=== PATIENT | female | born 1965 | race Caucasian/White ===

== ENCOUNTER 2018-04-24 06:18 | Observation (INO) | payer OTHER ==
[~2018-04-24] VITALS: Ht 165.1 cm; Wt 73.5 kg
[2018-04-24] MEDS ORDERED: ROCURONIUM 50 MG/5 ML VIAL. ONE ×2 (06:28→09:24)
[2018-04-24] MEDS ORDERED: LIDOCAINE 2% PF 5 ML VIAL. ONE ×2 (06:28)
[2018-04-24] MEDS ORDERED: DEXAMETHASONE SOD PHOS 20 MG/5 ML VIAL. ONE (06:28)
[2018-04-24] MEDS ORDERED: ONDANSETRON PF 4 MG/2 ML VIAL. ONE ×2 (06:28)
[2018-04-24] MEDS ORDERED: OMEP20CA10 PO (06:32)
[2018-04-24] MEDS ORDERED: CETI-203 PO (06:33)
[2018-04-24] MEDS ORDERED: METHYLENE BLUE 1% 10 ML VIAL. ONE ×2 (06:57→06:58)
[2018-04-24] MEDS ORDERED: ESTROGENS, CONJ VAGINAL CREAM 30GM TUBE. ONE (06:57)
[2018-04-24] MEDS ORDERED: BUPIVAC MPF-EPI 0.5%-1:200000 30 ML VIAL. ONE (06:57)
[2018-04-24] MEDS ORDERED: HYDROmorphone 2 MG/ML VIAL IV PRN ×2 (07:00→10:00)
[2018-04-24] MEDS ORDERED: fentaNYL PF VIAL 100 MCG/2 ML VIAL IV PRN (07:00)
[2018-04-24] MEDS ORDERED: ONDANSETRON PF 4 MG/2 ML VIAL. IV PRN ×2 (07:00→10:00)
[2018-04-24] MEDS ORDERED: PROCHLORPERAZINE 10 MG/2 ML VIAL. IV PRN (07:00)
[2018-04-24] MEDS ORDERED: MORPHINE SULFATE 4 MG/ML VIAL. IV PRN (07:00)
[2018-04-24] MEDS ORDERED: IV RINGERS,LACTATED 1000ML 1,000 ML IV SCH (07:00)
[2018-04-24] MEDS ORDERED: LIDOCAINE 1% PF 2 ML VIAL. ID PRN (07:00)
[2018-04-24 07:15] LABS: BASO # 0.1 x10^3/uL (0.0-0.2); BASO % 1 % (0-3); EOS # 0.3 x10^3/uL (0.0-0.7); EOS % 4 % (0-3); HEMATOCRIT 44.3 % (36.0-47.0); HEMOGLOBIN 14.6 g/dL (12.0-15.5); LYMPH # 1.6 x10^3/uL (1.0-4.8); LYMPH % 22 % (24-48); MEAN CORPUSCULAR HEMOGLOBIN 32 pg (25-35); MEAN CORPUSCULAR HGB CONC 33 g/dL (31-37); MEAN CORPUSCULAR VOLUME 98 fL (79-100); MONO # 0.6 x10^3/uL (0.0-1.1); MONO % 8 % (0-9); NEUT % 66 % (31-73); PLATELET COUNT 396 x10^3/uL (140-400); RED BLOOD COUNT 4.54 x10^6/uL (3.50-5.40); RED CELL DISTRIBUTION WIDTH 13.9 % (11.5-14.5); WHITE BLOOD COUNT 7.6 x10^3/uL (4.0-11.0)
[2018-04-24] MEDS ORDERED: MIDAZOLAM HCL/PF 2 MG/2 ML VIAL. ONE (07:22)
[2018-04-24] MEDS ORDERED: fentaNYL PF VIAL 100 MCG/2 ML VIAL ONE ×2 (07:22→08:49)
[2018-04-24] MEDS ORDERED: PHENYLEPHRINE 10 MG/ML VIAL. ONE (07:25)
--- NOTE | 2018-04-24 07:44 | PDOC1 ---
History and Physical Date of Admission Date of Admission DATE: 04/24/18 TIME: 07:40 Identification/Chief Complaint Chief Complaint AUB CPP Source Source: Patient Past Medical History Cardiovascular: No pertinent hx Pulmonary: No pertinent hx GI: No pertinent hx Hepatobiliary: No pertinent hx Psych: No pertinent hx ENT: No pertinent hx Past Surgical History Past Surgical History: Tubal Ligation Social History Drugs: None Current Medications Current Medications Current Medications Ondansetron HCl (Zofran) 4 mg PRN Q6HRS PRN IV NAUSEA/VOMITING; Start 04/24/18 at 07:00; Stop 04/25/18 at 06:59 Fentanyl Citrate (Fentanyl 2ml Vial) 25 mcg PRN Q5MIN PRN IV MILD PAIN; Start 04/24/18 at 07:00; Stop 04/25/18 at 06:59 Fentanyl Citrate (Fentanyl 2ml Vial) 50 mcg PRN Q5MIN PRN IV MODERATE TO SEVERE PAIN; Start 04/24/18 at 07:00; Stop 04/25/18 at 06:59 Morphine Sulfate (Morphine Sulfate) 1 mg PRN Q10MIN PRN IV SEVERE PAIN; Start 04/24/18 at 07:00; Stop 04/25/18 at 06:59 Ringer's Solution 1,000 ml @ 30 mls/hr Q24H IV Last administered on 04/24/18at 06:47; Start 04/24/18 at 07:00; Stop 04/24/18 at 18:59 Lidocaine HCl (Xylocaine-Mpf 1% 2ml Vial) 2 ml PRN 1X PRN ID IV START; Start at 07:00; Stop 04/25/18 at 06:59 Hydromorphone HCl (Dilaudid) 0.5 mg PRN Q10MIN PRN IV SEV PAIN, Second choice; Start 04/24/18 at 07:00; Stop 04/25/18 at 06:59 Prochlorperazine Edisylate (Compazine) 5 mg PACU PRN PRN IV NAUSEA, MRX1; Start 04/24/18 at 07:00; Stop 04/25/18 at 06:59 Cefazolin Sodium/ Dextrose 50 ml @ 100 mls/hr 1X ONCE IV ; Start 04/24/18 at 06:00; Stop 04/24/18 at 06:29; Status DC Dexamethasone Sodium Phosphate (Decadron) 20 mg STK-MED ONCE .ROUTE ; Start at 06:28; Stop 04/24/18 at 06:30; Status DC Ondansetron HCl (Zofran) 4 mg STK-MED ONCE .ROUTE ; Start 04/24/18 at 06:28; Stop 04/24/18 at 06:31; Status DC Ondansetron HCl (Zofran) 4 mg STK-MED ONCE .ROUTE ; Start 04/24/18 at 06:28; Stop 04/24/18 at 06:32; Status DC Lidocaine HCl (Lidocaine Pf 2% Vial) 5 ml STK-MED ONCE .ROUTE ; Start 04/24/18 at 06:28; Stop 04/24/18 at 06:32; Status DC Lidocaine HCl (Lidocaine Pf 2% Vial) 5 ml STK-MED ONCE .ROUTE ; Start 04/24/18 at 06:28; Stop 04/24/18 at 06:32; Status DC Rocuronium [place] (Zemuron) 50 mg STK-MED ONCE .ROUTE ; Start 04/24/18 at 06:28 ; Stop 04/24/18 at 06:33; Status DC Bupivacaine HCl/ Epinephrine Bitart (Sensorcain-Mpf Epi 0.5%-1:200141) 30 ml STK -MED ONCE .ROUTE ; Start 04/24/18 at 06:57; Stop 04/24/18 at 06:58; Status DC Methylene Blue (Methylene Blue) 1 ml STK-MED ONCE .ROUTE ; Start 04/24/18 at 06: 57; Stop 04/24/18 at 06:58; Status DC Estrogens Conjugated (Premarin) 30 cong STK-MED ONCE .ROUTE ; Start 04/24/18 at 06:57; Stop 04/24/18 at 06:58; Status DC Methylene Blue (Methylene Blue) 1 ml STK-MED ONCE .ROUTE ; Start 04/24/18 at 06: 58; Stop 04/24/18 at 06:59; Status DC Fentanyl Citrate (Fentanyl 2ml Vial) 100 mcg STK-MED ONCE .ROUTE ; Start at 07:22; Stop 04/24/18 at 07:23; Status DC Midazolam HCl (Versed) 2 mg STK-MED ONCE .ROUTE ; Start 04/24/18 at 07:22; Stop 04/24/18 at 07:23; Status DC Phenylephrine HCl (Kaden-Synephrine Inj) 10 mg STK-MED ONCE .ROUTE ; Start at 07:25; Stop 04/24/18 at 07:26; Status DC Active Scripts Active Reported Cetirizine Hcl 1 Mg/1 Ml Solution 2.5 Ml PO DAILY Omeprazole 20 Mg Capsule. 1 Cap PO DAILY Allergies Allergies: Coded Allergies: No Known Drug Allergies (Unverified , 04/24/18) ROS Gastrointestinal: Yes Other (SONIDO AUB CPP) Genitourinary: YES Other (AUB SONIDO) Physical Exam General: Alert, Oriented X3, Cooperative, No acute distress HEENT: PERRLA Lungs: Clear to auscultation, Normal air movement Breasts: Normal, Rt breast nml w/o mass, Lt breast nml w/o mass, Nipples normal Abdomen: Normal bowel sounds, Soft, No tenderness, No hepatosplenomegaly, No masses Male Genitals Exam: normal genitalia, normal prostate PELVIC: Nml ext genitalia, Nml ext vulva, Nml ext vagina, Nml ext cervic Extremities: No clubbing, No cyanosis, No edema, Normal pulses, No tenderness/ swelling Skin: No rashes, No breakdown, No significant lesion Neuro: Normal gait, Normal speech, Strength at 5/5 X4 ext, Normal tone, Sensation intact, Cranial nerves 3-12 NL, Reflexes 2+ Psych/Mental Status: Mental status NL, Mood NL Vitals Vitals Vital Signs Date Time Temp Pulse Resp B/P (MAP) Pulse Ox O2 Delivery O2 Flow Rate FiO2 04/24/18 06:34 97.3 83 16 144/71 97 Room Air 97.3 Labs Labs Laboratory Tests Test 04/24/18 06:20 White Blood Count 7.6 x10^3/uL (4.0-11.0) Red Blood Count 4.54 x10^6/uL (3.50-5.40) Hemoglobin 14.6 g/dL (12.0-15.5) Hematocrit 44.3 % (36.0-47.0) Mean Corpuscular Volume 98 fL (79-100) Mean Corpuscular Hemoglobin 32 pg (25-35) Mean Corpuscular Hemoglobin Concent 33 g/dL (31-37) Red Cell Distribution Width 13.9 % (11.5-14.5) Platelet Count 396 x10^3/uL (140-400) Neutrophils (%) (Auto) 66 % (31-73) Lymphocytes (%) (Auto) 22 % (24-48) Monocytes (%) (Auto) 8 % (0-9) Eosinophils (%) (Auto) 4 % (0-3) Basophils (%) (Auto) 1 % (0-3) Neutrophils # (Auto) 5.0 x10^3uL (1.8-7.7) Lymphocytes # (Auto) 1.6 x10^3/uL (1.0-4.8) Monocytes # (Auto) 0.6 x10^3/uL (0.0-1.1) Eosinophils # (Auto) 0.3 x10^3/uL (0.0-0.7) Basophils # (Auto) 0.1 x10^3/uL (0.0-0.2) Laboratory Tests Test 04/24/18 06:20 White Blood Count 7.6 x10^3/uL (4.0-11.0) Red Blood Count 4.54 x10^6/uL (3.50-5.40) Hemoglobin 14.6 g/dL (12.0-15.5) Hematocrit 44.3 % (36.0-47.0) Mean Corpuscular Volume 98 fL (79-100) Mean Corpuscular Hemoglobin 32 pg (25-35) Mean Corpuscular Hemoglobin Concent 33 g/dL (31-37) Red Cell Distribution Width 13.9 % (11.5-14.5) Platelet Count 396 x10^3/uL (140-400) Neutrophils (%) (Auto) 66 % (31-73) Lymphocytes (%) (Auto) 22 % (24-48) Monocytes (%) (Auto) 8 % (0-9) Eosinophils (%) (Auto) 4 % (0-3) Basophils (%) (Auto) 1 % (0-3) Neutrophils # (Auto) 5.0 x10^3uL (1.8-7.7) Lymphocytes # (Auto) 1.6 x10^3/uL (1.0-4.8) Monocytes # (Auto) 0.6 x10^3/uL (0.0-1.1) Eosinophils # (Auto) 0.3 x10^3/uL (0.0-0.7) Basophils # (Auto) 0.1 x10^3/uL (0.0-0.2) VTE Prophylaxis Ordered VTE Prophylaxis Devices: Yes VTE Pharmacological Prophylaxi: No Assessment/Plan Assessment/Plan [facility] SU[facility] MARIA HAWKINS MD Apr 24, 2018 07:44
[2018-04-24 08:03] LABS: U PREG PATIENT NEGATIVE (NEG)
[2018-04-24] MEDS ORDERED: NEOSTIGMINE 10 MG/10 ML VIAL. ONE ×2 (08:22→08:23)
[2018-04-24] MEDS ORDERED: GLYCOPYRROLATE 1 MG/5 ML VIAL. ONE (08:22)
[2018-04-24] MEDS ORDERED: SEVOFLURANE 61 TO 120 MINUTES. IH ONE (08:48)
[2018-04-24] MEDS ORDERED: LIDOCAINE 1%/EPI 1:100,000 20 ML VIAL. ONE (09:46)
[2018-04-24] MEDS ORDERED: 0.9 % SODIUM CHLORIDE 10 ML DISP.SYRIN. IV PRN (10:00)
[2018-04-24] MEDS ORDERED: NALOXONE 0.4 MG/ML VIAL. IV PRN (10:00)
[2018-04-24] MEDS ORDERED: MAG HYDROX/ALUMINUM HYD/SIMETH 30 ML ORAL.SUSP PO PRN (10:00)
[2018-04-24] MEDS: DOCUSATE SODIUM 100 MG CAPSULE. PO SCH ×2 (10:00→18:28)
[2018-04-24] MEDS ORDERED: DEXTROSE 50% 25 GM / 50ML DISP.SYRIN. IV PRN (10:00)
[2018-04-24] MEDS ORDERED: diphenhydrAMINE 50 MG/ML VIAL IV PRN (10:00)
[2018-04-24] MEDS ORDERED: SIMETHICONE 80 MG TAB.CHEW PO PRN (10:00)
[2018-04-24] MEDS ORDERED: diphenhydrAMINE HCL 25 MG CAPSULE PO PRN (10:00)
[2018-04-24] MEDS ORDERED: CALCIUM CARBONATE 500 MG TAB.CHEW PO PRN (10:00)
[2018-04-24] MEDS ORDERED: ZOLPIDEM 5 MG TABLET. PO PRN (10:00)
[2018-04-24] MEDS ORDERED: KETOROLAC 30 MG/ML INJ FOR OR. INJ ONE (10:02)
--- NOTE | 2018-04-24 10:04 | PDOC ---
BRIEF OPERATIVE NOTE Pre-Op Diagnosis AUB PMB CPP Post-Op Diagnosis Same Procedure Performed [facility] BSO Surgeon Avery Walker Anesthesia Type: General Specimens Obtained UTO Complications None MARIA PARIKH MD Apr 24, 2018 10:03
--- NOTE | 2018-04-24 10:24 | PDOC ---
BRIEF OPERATIVE NOTE Date: Apr 24, 2018 Pre-Op Diagnosis SONIDO Post-Op Diagnosis Same Procedure Performed Bladder Sling Surgeon Dr. Walker [employer] Director Dr. Varela Anesthesia Type: General Blood Loss 200 ml (combined case) Specimens Obtained none Findings SONIDO Complications none Operative Note see dictation LENKA WALKER Jr, MD Apr 24, 2018 10:24
[2018-04-24] MEDS ORDERED: OPIUM/BELLADONNA 30/16.2MG SUPP.RECT. PR PRN ×2 (10:30→17:15)
[2018-04-24] MEDS: fentaNYL PF VIAL 100 MCG/2 ML VIAL IV PRN ×2 (10:42→11:10)
--- NOTE | 2018-04-24 11:09 | OP ---
DATE OF SURGERY: Please see Dr. Varela's note for detail of LAVH and BSO. I performed the bladder sling placement as primary surgeon. PREOPERATIVE DIAGNOSIS: Stress urinary incontinence. POSTOPERATIVE DIAGNOSIS: Stress urinary incontinence. PROCEDURE: Suburethral bladder sling. SURGEON: Rony Lutz MD DIRECTOR GLOBAL DEVELOPMENT: Dr. Varela. ANESTHESIA: GETA. ESTIMATED BLOOD LOSS: 200 mL for combined case. FINDINGS: Stress urinary incontinence. COMPLICATIONS: None. SUMMARY: The patient was diagnosed with stress urinary incontinence in clinic and was counseled on risks, benefits and expectations of suburethral bladder sling placement and voiced clear understanding to proceed. DESCRIPTION OF PROCEDURE: After completion of the LAVH, BSO and assistance for Dr. Varela, a weighted speculum was placed vaginally. Allis clamp was placed 1 cm below the urethral orifice. Second Allis clamp was placed 3 cm below the first Allis clamp and 1% lidocaine with epinephrine was injected between the 2 Allis clamps in a linear fashion as well as in the periurethral space. 1% lidocaine with epinephrine was also injected at the groin insertion site at the level of the abductus longus at the level of the clitoris where the abductus longus connects to the pubic rami bilaterally. Incision was made with scalpel between the 2 Allis clamps in a vertical fashion. Metzenbaum scissors were utilized to dissect off the vaginal mucosa and developed the periurethral space bilaterally. This was from the pubovesical fascia. Incisions were also made in the groin region. The Obtryx bladder sling trocar was then placed through the left insertion site, guided with the index finger through the periurethral space. Same process took place with the right trocar. The bladder sling was then adjusted to a loose fit using size 7 Hegar dilator. Cystoscopy was performed in which the bladder was normal. The ureterovesical junctions were functioning normally. There was no evidence of bladder perforation or injury. The cystoscope was then removed. The mesh was then excised at the level of the skin and groin regions. The vaginal wall mucosa was reapproximated using 2-0 Vicryl suture in a [id number] manner. Dermabond was utilized to reapproximate the groin incision sites. A Premarin soaked vaginal packing was placed. العلي catheter was placed, which elicited clear yellow urine. The patient tolerated the procedure well and was taken to recovery room in stable condition. Sponge and needle count correct x 3. RONY LUTZ MD DR: DAHIANA/ashley JOB#: [id number] / [id number]
[2018-04-24 12:00] VITALS: BP 108/61
[2018-04-24 12:30] VITALS: BP 106/69
[2018-04-24 13:17] VITALS: BP 108/62
[2018-04-24] MEDS: ceFAZolin SODIUM 1 GM in IV DEXTROSE 5% 50 ML IV SCH ×2 (14:32→20:14)
[2018-04-24] MEDS: oxyCODONE/APAP 5/325 1 TAB TABLET PO PRN ×2 (14:33→18:29)
--- NOTE | 2018-04-24 18:27 | OP ---
DATE OF SURGERY: 04/24/2018 POSTOPERATIVE DIAGNOSES: 1. Abnormal uterine bleeding. 2. Post pausal uterine bleeding. 3. Chronic pelvic pain. POSTOPERATIVE DIAGNOSES: 1. Abnormal uterine bleeding. 2. Post pausal uterine bleeding. 3. Chronic pelvic pain. PROCEDURE: Laparoscopic-assisted vaginal hysterectomy with bilateral salpingo-oophorectomy and pubovesical sling by Dr. Rony Walker. SURGEON: Norbert Varela M.D. SUPERVISOR PREPRESS: Dr. Rony Walker. ANESTHESIA: General. SPECIMENS: Uterus, tubes, and ovaries. COMPLICATIONS: None. CONDITION: Stable. DESCRIPTION OF PROCEDURE: After risks, benefits, indications and alternatives were discussed in detail with the patient, the patient was brought to OR theater, placed in the dorsal lithotomy position in Eliseo banner. After placing a uterine manipulator transvaginally, attention was then turned to the anterior abdominal wall. A previous transverse infraumbilical incision was incised sharply with a scalpel via the Visiport. A 5 mm disposable trocar was placed through this incision and pneumoperitoneum was created. Two lateral trocars were inserted in the usual fashion after infiltrating the area with 0.5% Marcaine with epinephrine. Using the EnSeal cautery cut device, first Dr. Walker took down the right round ligament, the right infundibulopelvic ligament down the broad ligament, the cardinal ligament and creating a bladder flap with the device. Same procedure was carried on the opposite side; however, the tube was transected from the uterus and was brought out through the center port and handed off the operative field. Good hemostasis was assured. Approximately 200 mL of saline was placed in the pelvis. All laparoscopic instruments were removed. Pneumoperitoneum was allowed to dissipate and then attention was turned to the vaginal part of the procedure. The uterine manipulator was removed. Posterior weighted speculum was placed in the vaginal vault. Cervix was grasped with a single tooth tenaculum, circumscribed with a scalpel. Posterior cul-de-sac was entered sharply with Sainz scissors. A long weighted speculum was placed in this space to displace the bladder inferiorly. Anterior cul-de-sac was entered in the usual fashion after incising the pubovesical cervical fascia and both bluntly and sharply with Metzenbaum scissors. Curved Chris was placed in the space to displace the bladder superiorly. Uterosacral ligaments were clamped, cut and tied bilaterally. The remaining of the attachments of the cardinal ligaments were clamped, cut and tied bilaterally. The uterus was removed from its attachments and handed off the operative field. Prior to this, left ovary had been detached from the uteroovarian ligament and had been placed in the posterior cul-de-sac and was retrieved without any difficulty. Good hemostasis was assured. Vaginal cuff was reapproximated with 2-0 ____ also in a [id number] manner. At this point, I scrubbed out and changed gloves. I went up above recreating the pneumoperitoneum, irrigated copiously with warm normal saline with a suction polyethylene bag machine operator. I inspected all pedicles and areas of bleeding were controlled with the EnSeal device. All pedicles were inspected and noted to be hemostatic. Pneumoperitoneum was allowed to dissipate. All laparoscopic instruments and trocar sleeves had been removed. The incisions were reapproximated with 4-0 Monocryl in a subcuticular fashion. Dr. Walker then proceeded to do his pubovesical sling, which he will dictate himself. On my part, sponge, needle and instrument counts were correct x 2 per nursing staff and Dr. Walker finished his surgery. NORBETR VARELA MD DR: LILLIE/aslhey JOB#: [id number] / [id number]
[2018-04-24] MEDS: SENNOSIDES/DOCUSATE 8.6/50MG TABLET. PO SCH (20:14)
[2018-04-24 23:00] VITALS: BP 98/61
[2018-04-25] MEDS: ceFAZolin SODIUM 1 GM in IV DEXTROSE 5% 50 ML IV SCH (01:50)
[2018-04-25 06:13] VITALS: BP 86/59
[2018-04-25 06:15] LABS: CALCIUM 7.7 mg/dL (8.5-10.1); CREATININE 0.6 mg/dL (0.6-1.0); GFR 104.6; POTASSIUM 3.3 mmol/L (3.5-5.1)
[2018-04-25] MEDS: SENNOSIDES/DOCUSATE 8.6/50MG TABLET. PO SCH (09:03)
[2018-04-25] MEDS: DOCUSATE SODIUM 100 MG CAPSULE. PO SCH (09:03)
[2018-04-25] MEDS: oxyCODONE/APAP 5/325 1 TAB TABLET PO PRN ×2 (09:03→13:13)
--- NOTE | 2018-04-25 13:48 | PDOC ---
SURGICAL PROGRESS NOTE Subjective Pt. feeling well. Pt. completed bladder challenge and successful emptying bladder completely. Pain controlled. Vital Signs Vital Signs Date Time Temp Pulse Resp B/P (MAP) Pulse Ox O2 Delivery O2 Flow Rate FiO2 04/25/18 13:13 18 Room Air 04/25/18 06:13 98.5 70 86/59 (68) 96 98.5 04/24/18 11:00 2 I&O Intake and Output 04/25/18 06:59 Intake Total 2600 ml Output Total 1650 ml Balance 950 ml Intake IV Total 2600 ml Output Urine Total 1450 ml Estimated Blood Loss 200 ml PATIENT HAS A KANG: No General: Alert, Oriented X3, Cooperative HEENT: Atraumatic Lungs: Clear to auscultation Heart: Regular rate Abdomen: Normal bowel sounds, Soft, No tenderness, No masses Psych/Mental Status: Mental status NL Labs Laboratory Tests Test 04/24/18 06:20 04/24/18 07:30 04/25/18 05:30 White Blood Count 7.6 x10^3/uL (4.0-11.0) Red Blood Count 4.54 x10^6/uL (3.50-5.40) Hemoglobin 14.6 g/dL (12.0-15.5) Hematocrit 44.3 % (36.0-47.0) 32.4 % (36.0-47.0) Mean Corpuscular Volume 98 fL (79-100) Mean Corpuscular Hemoglobin 32 pg (25-35) Mean Corpuscular Hemoglobin Concent 33 g/dL (31-37) Red Cell Distribution Width 13.9 % (11.5-14.5) Platelet Count 396 x10^3/uL (140-400) Neutrophils (%) (Auto) 66 % (31-73) Lymphocytes (%) (Auto) 22 % (24-48) Monocytes (%) (Auto) 8 % (0-9) Eosinophils (%) (Auto) 4 % (0-3) Basophils (%) (Auto) 1 % (0-3) Neutrophils # (Auto) 5.0 x10^3uL (1.8-7.7) Lymphocytes # (Auto) 1.6 x10^3/uL (1.0-4.8) Monocytes # (Auto) 0.6 x10^3/uL (0.0-1.1) Eosinophils # (Auto) 0.3 x10^3/uL (0.0-0.7) Basophils # (Auto) 0.1 x10^3/uL (0.0-0.2) Urine Test Negative (NEG) Sodium Level 141 mmol/L (136-145) Potassium Level 3.3 mmol/L (3.5-5.1) Chloride Level 107 mmol/L (98-107) Carbon Dioxide Level 27 mmol/L (21-32) Anion Gap 7 (6-14) Blood Urea Nitrogen 6 mg/dL (7-20) Creatinine 0.6 mg/dL (0.6-1.0) Estimated GFR (Cockcroft-Gault) 104.6 Glucose Level 97 mg/dL (70-99) Calcium Level 7.7 mg/dL (8.5-10.1) Laboratory Tests Test 04/25/18 05:30 Hematocrit 32.4 % (36.0-47.0) Sodium Level 141 mmol/L (136-145) Potassium Level 3.3 mmol/L (3.5-5.1) Chloride Level 107 mmol/L (98-107) Carbon Dioxide Level 27 mmol/L (21-32) Anion Gap 7 (6-14) Blood Urea Nitrogen 6 mg/dL (7-20) Creatinine 0.6 mg/dL (0.6-1.0) Estimated GFR (Cockcroft-Gault) 104.6 Glucose Level 97 mg/dL (70-99) Calcium Level 7.7 mg/dL (8.5-10.1) Assessment/Plan A: POD#1 s/p NAYLA PIERSON and Bladder Sling P: D/c home. LENKA LUTZ Jr, MD Apr 25, 2018 13:48
--- NOTE | 2018-04-25 13:49 | DISCH ---
DISCHARGE INSTRUCTIONS Condition on Discharge Condition on Discharge: Stable Activity After Discharge Activity Instructions for Disc: Activity as tolerated Lifting Instructions after Dis: No heavy lifting Driving Instructions after Dis: No driving for 2 weeks Diet after Discharge Diet Texture: Regular Contacting the DRSakshi after DC Call your doctor for: Concerns you may have Follow-Up Follow up with: Dr. Varela in [address] Walker in 2 weeks. LENKA WALKER Jr, MD Apr 25, 2018 13:49
[2018-04-25] MEDS ORDERED: DOCU-109 PO (13:51)
[2018-04-25] MEDS ORDERED: OXYC1TAB15 PO (13:51)
[2018-04-25] MEDS ORDERED: IBUP-1060 PO (13:51)
--- NOTE | 2018-04-29 09:10 | PATHOLOGY ---
[facility] Accession Number: [id number] . 01 Material submitted: . UTERUS, CERVIX, BILATERAL TUBES AND OVARIES . 01 Clinical history: . Mixed incontinence . 02 Diagnosis: Uterus, bilateral ovaries and fallopian tubes, hysterectomy and bilateral salpingo-oophorectomy: - Cervix with mild chronic inflammation and Nabothian cyst. - Proliferative phase endometrium. - Myometrium with leiomyomata, two, up to 0.7 cm, and adenomyosis. - Serosal surface with no pathologic diagnosis. - Right and left ovaries and fallopian tubes with no significant histopathologic diagnosis. (SKM:savanah; 04/25/2018) QMS/04/25/2018 . 02 Electronically signed: . Jeremy Jose MD, Pathologist NPI- [id number] . 01 Gross description: . The specimen is received in formalin, labeled "Madiha Brooks, uterus, cervix, bilateral tubes, bilateral ovaries", consist of a uterine corpus with attached cervix weighing 87 g and measuring 9.0 x 4.5 x 4.5 cm. The serosa is villafana-pink, glistening with several dark brown foci at the fundus. The villafana-pink, distorted ectocervix measures 3.5 x 3.0 cm with a 1.5 cm slit-like external os. The anterior paracervical soft tissue is inked blue. Several nabothian cysts are present. The endocervical canal measures 2.2 cm in length and is lined by a villafana-pink herringbone mucosa. The triangular endometrial cavity measures 3.6 x 2.4 cm measures and is lined by a villafana-pink up to 0.2 cm endometrium. The villafana-pink, mildly trabeculated myometrium measures up to 1.8 cm and consist of two estrella-white nodules measuring 0.7 x 0.5 x 0.4 cm (anterior fundus) and 0.5 x 0.5 x 0.5 cm (posterior fundus). These nodules show a whorled cut surface with no discrete hemorrhage or necrosis. Also received are two tubo-ovarian complexes, one with overyling fimbriated fallopian tube weighing 11 g and measuring ovary = 3.0 x 1.7 x 1.0 cm and possible previously ligated fallopian tube 5.0 cm in length with an average 0.5 cm diameter (adnexa #1). The other has detached, partially cystic ovary measuring 4.5 x 2.6 x 0.8 cm and detached segment of fallopian tube measuring 3.5 cm in length with an average 0.3 cm diameter and weighing 9 g (adnexa #2). The external surface of adnexa #1 ovary is inked black, serially sectioned to show a estrella-white to hemorrhagic cut surface. The adnexa #2 ovary show a predominantly cystic cut surface. The bilateral fallopian tube serosa is villafana-pink and glistening and the lumen is well-defined. . [facility] [employer] [facility] tissue is submitted as follows: A1. Anterior cervix A2. Posterior cervix A3-A4. Anterior endomyometrium (A4 = fundus nodule) A5-A6. Posterior endomyometrium (A6 = fundus nodule) A7. Fundal serosa, hemorrhagic focus A8-A9. Adnexa #1, ovary A10. Adnexa #1, fallopian tube A11. Adnexa #2, ovary A12. Adnexa #2, fallopian tube ([facility]; 04/24/2018) SHS/SHS . 02 Pathologist provided ICD-10: N72, N88.8, D25.9, N80.0 . 02 CPT . 204988 Specimen Comment: A courtesy copy of this report has been sent to Specimen Comment: [phone]. Specimen Comment: Report sent to Performed at: 01 [facility] [address], [place] [id number] MD Yohannes Bullock MD Phone: [phone] Performed at: 02 [facility] [address] [id number] MD Christiano Mackay MD Phone: [phone]
== END 2018-04-25 14:20 | disposition home or self-care (01) ==
LOC: SURG 06:18 → 3 NORTH 10:42
PROVIDERS: ADMIT Specialist; ATTEND Specialist
DX: N39.3 Stress incontinence (female) (male) (principal); Z98.890 Other specified postprocedural states; N39.46 Mixed incontinence
CPT/HCPCS: 36415; 57288; 80048; 81025; 85014; 85025; 86850; 86900; 86901; 88307; 96365; 96366; A7015; G0378; G0379; J0690; J0696; J0780; J1100; J1170; J1885; J2001; J2250; J2405; J2710; J3010; J3490; J7030; J7120; Q9968; C1771